=== PATIENT | male | born 1980 | race Caucasian/White ===

== ENCOUNTER 2019-07-05 10:28 | Emergency (ER) | payer MEDICAID ==
[~2019-07-05] VITALS: Ht 177.8 cm; Wt 76.2 kg
[~2019-07-05 10:28] MED LIST: LACT1CAP26 PO
[2019-07-05 10:37] VITALS: BP 138/78
== END 2019-07-05 11:11 | disposition home or self-care (01) ==
LOC: ER 10:28
DX: Z00.00 Encounter for general adult medical examination without abnormal findings (principal); F15.90 Other stimulant use, unspecified, uncomplicated; F17.200 Nicotine dependence, unspecified, uncomplicated; F12.90 Cannabis use, unspecified, uncomplicated; Z79.899 Other long term (current) drug therapy
CPT/HCPCS: 99281